=== PATIENT | female | born 2000 | race Caucasian/White ===

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

== ENCOUNTER 2023-02-03 07:24 | Inpatient (IN) | payer OTHER ==
[2023-02-09] MEDS ORDERED: TRANEXAMIC 1,000 MG/100ML-NACL 1,000 MG in EMPTY BAG 1 BAG IV PRN (06:04)
[2023-02-09] MEDS ORDERED: TERBUTALINE 1 MG/ML VIAL SQ PRN (06:04)
[2023-02-09] MEDS ORDERED: CARBOPROST TROMETHAMINE 250 MCG/ML 1 ML AMP IM PRN (06:04)
[2023-02-09] MEDS ORDERED: miSOPROStoL 200 MCG TAB PO PRN (06:04)
[2023-02-09] MEDS ORDERED: LIDOCAINE 0.5% (PF) 5 MG/ML (50 ML SDV) SQ PRN (06:04)
[2023-02-09] MEDS ORDERED: OXYTOCIN 10 UNIT/ML 1 ML VIAL IM PRN (06:04)
[2023-02-09] MEDS ORDERED: METHYLERGONOVINE 0.2 MG/ML 1 ML AMP IM PRN (06:04)
[2023-02-09] MEDS ORDERED: OXYTOCIN 30 UNITS/500 ML NS 30 UNIT in SALINE 1 500ML.BAG IV SCH (06:15)
[2023-02-09] MEDS: LACTATED RINGERS 1,000 ML IV SCH ×5 (06:15→23:42)
[2023-02-09 06:43] LABS: Basophils % (A) 0 %; Eosinophils # (A) 0.2 k/uL (0-0.7); Eosinophils % (A) 2 %; HCT 35.7 % (34.0-46.0); HGB 12.3 gm/dL (11.4-16.0); Lymphocytes # (A) 1.7 k/uL (1.0-4.8); Lymphocytes % (A) 20 %; MCH 33.4 pg (25.0-35.0); MCHC 34.6 g/dL (31.0-37.0); MCV 96.6 fL (80.0-100.0); Mean Platelet Volume 12.2; Monocytes # (A) 0.7 k/uL (0-1.0); Monocytes % (A) 8 %; Neutrophils % (A) 69 %; Platelet Count 151 k/uL (150-450); RBC 3.69 m/uL (3.80-5.40); RDW 14.6 % (11.5-15.5); WBC 8.7 k/uL (4.0-11.0)
--- NOTE | 2023-02-09 09:33 | P.HPOB ---
History of Present Illness H&P Date: 02/09/23 Chief Complaint: Elective induction of labor Ms. Richards is a 22 year old at 40 weeks and 6 days with EDC of 02/03/2023 (by 8 week US) who presents to labor and delivery for induction of labor for post-dates. has been uncomplicated. Fetus measured in the 89%ile for gestational age at a 37 week ultrasound (7 pounds, 12 ounces). Maternal work-up: blood type A positive, antibody negative, rubella immune, VDRL non-reactive, HBsAg negative, HIV negative, chlamydia negative, gonorrhea negative, 1 hour GTT of 96, GBS negative. TDap administered on 11/14/2022. Past medical history: asthma Past surgical history: None Allergies: None Medications: vitamins, ventolin prn, low dose aspirin Past Medical History Past Medical History: Asthma History of Any Multi-Drug Resistant Organisms: None Reported Past Surgical History: No Surgical Hx Reported Past Anesthesia/Blood Transfusion Reactions: No Reported Reaction Past Psychological History: Depression Smoking Status: Never smoker Past Alcohol Use History: None Reported Past Drug Use History: None Reported Additional Drug Use History / Comment(s): Former vaper Medications and Allergies Home Medications Medication Instructions Recorded Confirmed Type Aspirin [Adult Low Dose Aspirin EC] 81 mg PO DAILY 02/02/23 02/09/23 History Vit No.179/Iron/Folic 1 each PO DAILY 02/02/23 02/09/23 History [ Tablet] Allergies Allergy/AdvReac Type Severity Reaction Status Date / Time No Known Allergies Allergy Verified 02/09/23 06:01 Exam Vital Signs Temp Pulse Resp BP Pulse Ox 02/09/23 06:29 96.8 F L 93 16 132/76 99 Intake and Output 02/08/23 02/09/23 02/09/23 22:59 06:59 14:59 Other: # Voids 1 Weight 87.09 kg Focused physical exam is performed. Patient is a healthy-appearing no apparent distress. Abdomen non-tender, gravid. Cervical exam is 4-5 centimeters, 80% effaced, and -2 station. AROM is performed for clear fluid. heart tones Category I on pitocin 6 units. Tocometer graphs contractions every 2-3 minutes. Results Result Diagrams: 02/09/23 06:15 Abnormal Lab Results - Last 24 Hours (Table) 02/09/23 Range/Units 06:15 RBC 3.69 L (3.80-5.40) m/uL Assessment and Plan Assessment: 22 year old at 40 weeks and 6 days presenting for induction of labor for post-dates Plan: Admit, NPO, mIVF, IV nubain or nitrous oxide prn, oxytocin titrated per hostpial protocol. Continuous EFM, close monitoring of patient. Time with Patient: Less than 30 (10 minutes)
[2023-02-09] MEDS ORDERED: HYDROmorphone 1 MG/ML 1 ML SYRINGE IVP STA (11:34)
[2023-02-09] MEDS ORDERED: ROPIVACAINE 5 MG/ML 20 ML AMPULE ONE (16:50)
[2023-02-09] MEDS ORDERED: SODIUM CHLORIDE 0.9% 100 ML BAG ONE (16:50)
[2023-02-09] MEDS ORDERED: fentaNYL (PF) 50 MCG/ML 5 ML AMP ONE (16:50)
[2023-02-09] MEDS ORDERED: AZITHROMYCIN 500 MG in SODIUM CHLORIDE 0.9% 250 ML IVPB STA (20:44)
[2023-02-09] MEDS ORDERED: CITRIC ACID-SODIUM CITRATE 15 ML CUP PO ONE (20:51)
[2023-02-09] MEDS ORDERED: MORPHINE SULFATE (PF) 0.3 MG/0.3 ML SYR ONE (21:30)
[2023-02-09] MEDS ORDERED: ONDANSETRON 4 MG/2 ML VIAL ONE (21:30)
[2023-02-09] MEDS ORDERED: KETOROLAC 15 MG/ML 1 ML VIAL ONE (21:30)
[2023-02-09] MEDS ORDERED: LIDOCAINE 2% INJ 20 MG/ML (2 ML VIAL) ONE (21:30)
[2023-02-09] MEDS ORDERED: NALBUPHINE 10 MG/ML (10 ML MDV) ONE (21:30)
[2023-02-09] MEDS ORDERED: OXYTOCIN 10 UNIT/ML 1 ML VIAL ONE (21:30)
[2023-02-09] MEDS ORDERED: diphenhydrAMINE 50 MG/ML 1 ML VIAL IVP PRN ×2 (22:34)
[2023-02-09] MEDS ORDERED: diphenhydrAMINE 25 MG CAP PO PRN (22:34)
[2023-02-09] MEDS ORDERED: METOCLOPRAMIDE 5 MG/ML 2 ML VIAL IVP PRN (22:34)
[2023-02-09] MEDS ORDERED: NALOXONE 0.4 MG/ML 1 ML VIAL IV PRN (22:34)
[2023-02-09] MEDS ORDERED: ZOLPIDEM 5 MG TAB PO PRN (22:34)
[2023-02-09] MEDS ORDERED: ONDANSETRON 4 MG/2 ML VIAL IVP PRN (22:34)
[2023-02-09] MEDS ORDERED: diphenhydrAMINE 50 MG CAP PO PRN (22:34)
--- NOTE | 2023-02-09 22:44 | P.OP ---
Date of Procedure: 02/09/23 Preoperative Diagnosis: 1. Term IUP at 40 weeks and 4 days 2. Arrest of descent Postoperative Diagnosis: 1. Term IUP at 40 weeks and 4 days 2. Arrest of descent 3. Direct Occiput Posterior 4. Large for gestational age Procedure(s) Performed: Primary Lower Transverse Section Implants: None Surgeon: Jackie Cramer Adult Education Professional #1: Vidya Howard Estimated Blood Loss (ml): 475 IV fluids (ml): 900 Urine output (ml): 250 (clear) Pathology: none sent Condition: stable Disposition: floor Indications for Procedure: This is a 22 year old at 40 weeks and 4 days being induced for post-dates. She progressed to complete dilation. During active labor the fetus began to have recurrent late decelerations relieved with position changes, stopping the oxytocin, and giving fluid boluses. She pushed for approximately 2 hours without any descent of the head. section was recommended for maternal and well-being. The risks of section were discussed including risk of bleeding, infection, damage to surrounding structures including bladder/bowel/ureters, and postoperative VTE. The patient understands this risk and desires to proceed. Operative Findings: Viable male in occiput posterior presentation. Weight 9 pounds, 9 oucnes (4350 grams). Apgars 8/9. Colorless amniotic fluid. Normal uterus, fallopian tubes, and ovaries. Description of Procedure: The patient was taken to the operating room where spinal anesthesia was found to be adequate. Two grams of Ancef and 500 milligrams of Azithromycin were given for infection prophylaxis. A vaginal prep was performed and the pillow was placed to gently displace the head upwards with 180 mL of sterile water. She was prepared and draped in the dorsal supine position with a leftward tilt. A Pfannenstiel skin incision was made with the scalpel. The incision was carried down to the fascia. The fascia was incised and extended laterally with Hernandez scissors. The superior aspect of the fascia was grasped with Syd clamps. The underlying rectus muscle was dissected off sharply with Hernandez scissors. In a similar fashion, the inferior aspect of the fascia was elevated with Syd clamps and the rectus muscle and pyramidalis were dissected off. Excellent hemostasis was achieved with the bovie. The rectus muscle was in the midline down to the level of the pubic symphysis. Pre-peritoneal fatty tissue was bluntly dissected to expose the peritoneum. The peritoneum was found to be free of adherent bowel and entered sharply with Hernandez scissors. The peritoneal incision was extended superiorly and inferiorly to the bladder reflection with good visualization of the bladder. The bladder blade was inserted and vesicouterine peritoneum was identified. Intraabdominal survey revealed scant, clear peritoneal fluid and the thinned-out lower uterine segment. The vesicouterine peritoneum was opened with scissors and the bladder flap was devel oped. The bladder blade was repositioned to keep the bladder out of the operative field. The lower uterine segment was incised with a scalpel. Colorless amniotic fluid was noted. The uterine incision was extended bluntly with lateral and upward traction. The fetus was in direct occiput posterior position. The head was elevated out of the pelvis with special attention paid to avoid using the uterine incision as a fulcrum. Gentle fundal pressure was applied once the head was brought into the incision. The infant was delivered with no difficulty. The mouth and nose were suctioned with a bulb. The cord was clamped and cut. The infant was handed off to the drier belt conveyor. IV oxytocin was initiated to facilitate uterine contractions. The placenta was delivered intact with manual massage of uterine fundus. The uterus was then exteriorized and the inside of the uterus was gently wiped with a lap sponge to assure complete removal of placental membranes. The uterine incision was closed with a 0-Polysorb suture in a running locked fashion. A second imbricating layer with 0-Vicryl was placed along the incision. The ovaries and tubes were found to be normal. The uterus, tubes, and ovaries were then gently returned to the abdominal cavity. The blood clots and fluid were wiped out of the abdomen and pelvis with moist laparotomy sponges. The uterine incision was reinspected and excellent hemostasis was noted. The fascial layer was closed with a 0-Vicryl suture. The subcutaneous layer was reapproximated with 2-0 Plain Gut. The skin was closed with 4-0 Monocryl in a subcuticular fashion. The patient tolerated the procedure well. All the counts were correct times two. The patient was taken to the recovery room in a stable condition.
[2023-02-09 23:44] VITALS: RESP 16
[2023-02-10] MEDS: KETOROLAC 15 MG/ML 1 ML VIAL IVP SCH ×2 (04:14→09:59)
[2023-02-10] MEDS: ACETAMINOPHEN TAB 500 MG TAB PO SCH ×4 (05:54→20:05)
--- NOTE | 2023-02-10 07:43 | P.PN ---
Progress Note - Text Progress Note Date: 02/10/23 Postop day 1 from under epidural anesthesia with epidural morphine given for postop pain management. Patient is doing well. Pain is well controlled. On visual analog scale 4/10 Mild itching present No nausea or vomiting reported. No Headache or weakness and numbness in the legs. No complications from spinal anesthesia.
[2023-02-10 08:04] LABS: Basophils % (A) 0 %; Eosinophils % (A) 0 %; HCT 31.3 % (34.0-46.0); HGB 10.9 gm/dL (11.4-16.0); Lymphocytes % (A) 9 %; MCH 33.6 pg (25.0-35.0); MCHC 34.8 g/dL (31.0-37.0); MCV 96.6 fL (80.0-100.0); Mean Platelet Volume 10.7; Monocytes # (A) 0.4 k/uL (0-1.0); Monocytes % (A) 4 %; Neutrophils # (A) 9.7 k/uL (1.3-7.7); Neutrophils % (A) 86 %; Platelet Count 125 k/uL (150-450); RBC 3.24 m/uL (3.80-5.40); RDW 14.6 % (11.5-15.5); WBC 11.2 k/uL (4.0-11.0)
[2023-02-10] MEDS: SENNOSIDES-DOCUSATE SODIUM 1 EACH TAB PO SCH ×2 (08:46→20:05)
[2023-02-10] MEDS: LACTATED RINGERS 1,000 ML IV SCH ×2 (08:47→19:42)
--- NOTE | 2023-02-10 10:20 | P.PNOBGPC ---
Subjective - Subjective Principal diagnosis: s/p primary section for arrest of descent Interval history: The patient is doing well this morning and had no acute events overnight. She has no complaints this morning. She reports moderate lochia, voiding without difficulty, ambulating, and eating/drinking without nausea or vomiting. She has not yet passed flatus. She is her without difficulty. She denies chest pain, shortness of breathing, fevers, or chills overnight. She denies pain or swelling in the legs. Patient reports: Reports appetite normal, Reports voiding normally, Reports pain well controlled, Reports ambulating normally : doing well, nursing well Objective - Vital Signs Latest vital signs: Vital Signs Temp Pulse Resp BP Pulse Ox 02/10/23 08:20 98.4 F 111 H 16 121/70 97 02/10/23 04:00 99.2 F 127 H 16 120/61 96 02/10/23 00:25 98.8 F 112 H 16 133/61 02/10/23 00:00 16 02/09/23 23:55 98.8 F 107 H 16 129/60 100 02/09/23 23:25 99.0 F 16 131/74 02/09/23 23:10 97 15 137/79 02/09/23 22:55 102 H 16 136/64 100 02/09/23 22:40 104 H 15 137/67 99 02/09/23 22:25 99.4 F 102 H 16 121/63 98 Intake and Output 02/09/23 02/10/23 02/10/23 22:59 06:59 14:59 Intake Total 510.5 Output Total 475 1158 Balance 35.5 -1158 Intake: Intake, IV Titration 30.5 Amount Oxytocin 30 Units/500 ml 30.5 Ns 30 unit In Saline 1 500ml.bag @ Per Protocol IV .Q0M [facility] Rx#:[id number] Oral 480 Output: Urine 1100 Uretheral (Beverly) 100 Estimated Blood Loss 475 Output, Quantitative 58 Blood Loss - Exam Extremities: Present: normal Abdomen: Present: normal appearance, soft Incision: Present: normal, dressed Uterus: Present: normal, firm - Labs Labs: Abnormal Lab Results - Last 24 Hours (Table) 02/10/23 Range/Units 07:21 WBC 11.2 H (4.0-11.0) k/uL RBC 3.24 L (3.80-5.40) m/uL Hgb 10.9 L (11.4-16.0) gm/dL Hct 31.3 L (34.0-46.0) % Plt Count 125 L (150-450) k/uL Neutrophils # 9.7 H (1.3-7.7) k/uL Assessment and Plan Assessment: 22 year old now POD#1 s/p primary section for arrest of descent Plan: 1. Postoperative. Patient meeting all postoperative milestones appropriately. Continue to monitor. 2. Viable male infant at bedside. Doing well. Consented for circumcision today. Dispo: Anticipate discharge home tomorrow.
[2023-02-10] MEDS: IBUPROFEN 600 MG TAB PO PRN (16:13)
[2023-02-10] MEDS ORDERED: SIMETHICONE 80 MG CHEWABLE PO PRN (16:26)
[2023-02-10] MEDS ORDERED: SIMETHICONE 80 MG CHEWABLE PO SCH (18:00)
[2023-02-11] MEDS: IBUPROFEN 600 MG TAB PO PRN ×2 (00:03→10:15)
[2023-02-11] MEDS: ACETAMINOPHEN TAB 500 MG TAB PO SCH (03:14)
--- NOTE | 2023-02-11 08:14 | P.PCN ---
Date of Procedure: 02/11/23 Preoperative Diagnosis: Parents desire circumcision Postoperative Diagnosis: Same Procedure(s) Performed: circumcision Implants: None Anesthesia: local Surgeon: Jackie Cramer Estimated Blood Loss (ml): 1 IV fluids (ml): 0 Urine output (ml): 0 Pathology: none sent Condition: stable Disposition: floor Indications for Procedure: Consent: Parent/guardian consented for circumcision. Discussed with parent/guardian benefits and risks of the procedure including bleeding, infection, and injury to penis and surrounding structures. Parent/guardian verbalized understanding. Consent signed.. Operative Findings: Normal shaft, glans, and urethral meatus. Description of Procedure: Timeout was completed. Dorsal penile block with 1 mL 1% Lidocaine injected for analgesia performed. Patient prepped and draped in the normal fashion. Circumcision performed with the 1.3 Gomco. Excellent hemostasis noted at the end of the procedure. Patient tolerated the procedure well
--- NOTE | 2023-02-11 09:48 | P.PNOBGPC ---
Subjective - Subjective Principal diagnosis: s/p section Interval history: Patient doing well, no obstetric complaints. No acute events overnight. Eating, drinking without nausea or vomiting. Ambulating and voiding without difficulty. Passing flatus. Pain well controlled with medications. Infant male at bedside, nursing well, s/p circ. Denies fevers, chills, chest pain, shortness of breath, pain/swelling in legs. Lochia minimal. Patient reports: Reports appetite normal, Reports voiding normally, Reports pain well controlled, Reports ambulating normally : doing well, nursing well Objective - Vital Signs Latest vital signs: Vital Signs Temp Pulse Resp BP Pulse Ox 02/11/23 00:00 97.9 F 83 16 138/62 02/10/23 20:00 98.0 F 93 16 133/62 98 02/10/23 16:00 97.8 F 92 16 126/69 97 02/10/23 12:00 98.3 F 88 16 127/64 97 Intake and Output 02/10/23 02/11/23 02/11/23 22:59 06:59 14:59 Other: # Voids 1 2 - Exam Extremities: Present: normal Abdomen: Present: normal appearance Incision: Present: normal, dry, intact Uterus: Present: normal, firm Assessment and Plan Assessment: 22 year old now POD#2 s/p primary section for arrest of descent Plan: 1. Postoperative. Patient meeting all postoperative milestones appropriately. 2. Viable male at bedside. Doing well. s/p circumcision. Dispo: Discharge home today.
--- NOTE | 2023-02-11 09:53 | P.DS ---
Providers Date of admission: 02/09/23 05:55 Expected date of discharge: 02/11/23 Attending physician: Jackie Cramer MD Primary care physician: [facility] Course: This is a 22 year old now POD#2 s/p primary section after arrest of descent during elective induction of labor. The patient was pushing for 2 hour without any descent and cephalopelvic disproportion was suspected. The patient is doing well, has no complaints. She desires discharge home today. She is meeting all postoperative milestones appropriately. I discussed discharge instructions with the patient including no lifting heavier than 15 lbs for 6 weeks and pelvic rest for 6 weeks. Patient encouraged to call the office for mood concerns, fevers, pain worsening instead of improving, heavy bleeding, foul-smelling discharge, or breast complaints. Patient to follow up with me in the office in 2 weeks for incision check. All questions answered. Assessment: 22 year old now POD#2 s/p primary section for arrest of descent Patient Condition at Discharge: Good Plan - Discharge Summary Discharge Rx Participant: No New Discharge Prescriptions: New Ibuprofen [Motrin] 600 mg PO Q6HR PRN #30 tab PRN Reason: Mild Pain (Scale 1 To 3) Acetaminophen Tab [Tylenol] 650 mg PO Q6H PRN #30 tab PRN Reason: Mild Pain (Scale 1 To 3) oxyCODONE HCL [Roxicodone] 5 mg PO Q6HR PRN 3 Days #12 tab PRN Reason: Breakthrough Pain No Action Vit No.179/Iron/Folic [ Tablet] 1 each PO DAILY Aspirin [Adult Low Dose Aspirin EC] 81 mg PO DAILY Discharge Medication List Aspirin [Adult Low Dose Aspirin EC] 81 mg PO DAILY 02/02/23 [History] Vit No.179/Iron/Folic [ Tablet] 1 each PO DAILY 02/02/23 [History] Acetaminophen Tab [Tylenol] 650 mg PO Q6H PRN #30 tab 02/11/23 [Rx] Ibuprofen [Motrin] 600 mg PO Q6HR PRN #30 tab 02/11/23 [Rx] oxyCODONE HCL [Roxicodone] 5 mg PO Q6HR PRN 3 Days #12 tab 02/11/23 [Rx] Follow up Appointment(s)/Referral(s): Jackie Cramer MD [STAFF PHYSICIAN] - 2 Weeks (post-operative) Patient Instructions/Handouts: (DC), How to Tell if Your Baby is Getting Enough Breast Milk (DC), How to Increase Your Milk Supply (DC), Depression (DC), Bleeding (DC) Activity/Diet/Wound Care/Special Instructions: No lifting heavier than 15 pounds for 6 weeks, pelvic rest for 6 weeks Discharge Disposition: HOME SELF-CARE
[2023-02-11] MEDS: SENNOSIDES-DOCUSATE SODIUM 1 EACH TAB PO SCH (10:15)
[2023-02-11 10:26] VITALS: BP 114/78; PULSE 78; TEMP 98.1
== END 2023-02-11 13:30 | disposition home or self-care (01) | DRG 788 ==
LOC: 4FBP 02-09 05:55
PROVIDERS: ADMIT Obstetrics & Gynecology; ATTEND Obstetrics & Gynecology
PROC: 3E033VJ Introduction of Other Hormone into Peripheral Vein, Percutaneous Approach (ICD-10-PCS; 2023-02-09)
PROC: 4A0HXCZ Measurement of Products of Conception, Cardiac Rate, External Approach (ICD-10-PCS; 2023-02-09)
PROC: 10D00Z1 Extraction of Products of Conception, Low, Open Approach (ICD-10-PCS; principal; 2023-02-09 21:44)
DX: O65.9 Obstructed labor due to maternal pelvic abnormality, unspecified (principal); O76 Abnormality in fetal heart rate and rhythm complicating labor and delivery; F32.A Depression, unspecified; J45.909 Unspecified asthma, uncomplicated; O36.63X0 Maternal care for excessive fetal growth, third trimester, not applicable or unspecified; O48.0 Post-term pregnancy; O62.1 Secondary uterine inertia; O99.73 Diseases of the skin and subcutaneous tissue complicating the puerperium; L29.9 Pruritus, unspecified; O32.4XX0 Maternal care for high head at term, not applicable or unspecified; O99.344 Other mental disorders complicating childbirth; O99.52 Diseases of the respiratory system complicating childbirth; Z37.0 Single live birth; Z3A.40 40 weeks gestation of pregnancy; Z79.82 Long term (current) use of aspirin
CPT/HCPCS: 85025; 86850; 86900; 86901

== ENCOUNTER 2023-02-08 11:00 | Outpatient (CLI) | payer OTHER ==
[2023-02-08 12:43] VITALS: BP 127/68; PULSE 78; RESP 14; TEMP 97.8
--- NOTE | 2023-03-01 10:24 | P.MSEPDOC ---
Presenting Problems - Arrival Data Date of Arrival on Unit: 02/08/23 Time of Arrival on Unit: 11:20 Mode of Transport: Ambulatory - Complaint OB-Reason for Admission/Chief Complaint: Possible Onset of Labor Comment: contractions thru the night Medical History - Information : 1 Para: 2 Term: 0 : 0 Abortions: Spontaneous or Elective: 0 Number of Living Children: 0 - Gestational Age Gestational Age by ELEN (wks/days): 40 Weeks and 5 Days Review of Systems - Review of Systems Constitutional: No problems Breast: No problems ENT: No problems Cardiovascular: No problems Respiratory: No problems Gastrointestinal: No problems Genitourinary: No problems Musculoskeletal: No problems Neurological: No problems Skin: No problems Vital Signs - Temperature Temperature: 97.8 F Temperature Source: Axillary - Pulse Apical Pulse Rate: 78 Pulse Assessment Method: Automatic Cuff - Respirations Respiratory Rate: 14 Oxygen Delivery Method: Room Air - Blood Pressure Right Arm Blood Pressure: 127/68 Blood Pressure Mean: 87 Blood Pressure Source: Automatic Cuff Medical Screen Scoring - Cervical Exam Dilation (cm): 2 Effacement (%): 70 Station: -1 Membranes: Intact - Uterine Contractions Frequency From (mins): 3 Frequency To (mins): 6 Duration From (seconds): 60 Duration To (seconds): 70 Intensity: Mild Resting: Soft to palpation - Assessment - Baby A Baseline FHR: 145 Heart Rate - NICHD Category: Category I (Normal) NST: Reactive Physician Notification - Physician Notified Physician Notified Date: 02/08/23 Physician Notified Time: 11:19 Physician: Madie Sampson Order Received: Yes - Notification Comment Comment: monitor pt in triage for one hour, pt may be discharged home with no cervical change and reactive nst Maternal Triage Index - Maternal Triage Index Presenting for scheduled procedure w/no complaint: No - Stat/Priority 1 Stat Priority 1: No - Urgent/Priority 2 Urgent Priority 2: No - Prompt/Priority 3 Prompt Priority 3: No - Non-Urgent/Priority 4 Non-Urgent Priority 4: No - Scheduled/Requesting Priority 5 Scheduled/Requesting Priority 5: No Disposition - Disposition OB Disposition: Discharge to home Discharge Date: 02/08/23 Discharge Time: 12:35 I agree with the RN Medical Screening Exam: Yes Case reviewed; plan agreed upon as documented in EMR&OBIX.: Yes Diagnosis: rule out labor
== END 2023-02-08 12:35 ==
LOC: FBPOP 11:00
PROVIDERS: ATTEND Obstetrics & Gynecology
DX: Z03.79 Encounter for other suspected maternal and fetal conditions ruled out (principal)
CPT/HCPCS: 59025; 99213